=== PATIENT | male | born 1990 | race Caucasian/White ===

== ENCOUNTER 2025-10-19 14:17 | Emergency (ER) | payer BC, MEDICAID ==
[~2025-10-19] VITALS: Ht 182.9 cm; Wt 81.8 kg
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
[2025-10-19 15:26] VITALS: BP 150/88; PULSE 109; RESP 18; TEMP 98.2; O2SAT 98
== END 2025-10-19 20:15 | disposition home or self-care (01) ==
LOC: ER 14:17
DX: S40.012A Contusion of left shoulder, initial encounter (principal); V89.2XXA Person injured in unspecified motor-vehicle accident, traffic, initial encounter; Y93.89 Activity, other specified; Y92.89 Other specified places as the place of occurrence of the external cause; Y99.8 Other external cause status
CPT/HCPCS: 71045; 99283